=== PATIENT | male | born 1990 ===

== ENCOUNTER 2021-05-30 12:13 | Emergency (ER) | payer SELFPAY ==
[2021-05-30 12:46] VITALS: BP 106/57
--- NOTE | 2021-05-30 14:22 | Emergency Department Report ---
Chief Complaint: Urogenital-Male Stated Complaint: STD CK Time Seen by Provider: 05/30/21 14:20 - HPI History of Present Illness: Patient is a 30-year-old male presents emergency room complaints of yellow penile discharge that occurred this morning. He states he was sexually active. He denies any dysuria, nausea, vomiting, diarrhea, pain or swelling the testicles, abdominal pain, back pain, hematuria, urinary retention. No past medical history. No allergies to medications. Initial vitals entered incorrectly, patient's vitals are normal On exam: Non toxic appearing, no acute distress atraumatic, normocephalic normal appearance of the eyes, EOMI, no periorbital edema or ecchymosis moist mucus membranes No respiratory distress, no accessory muscle use A&O x4, normal gait Patient is presenting for concerns of STD He denies any dysuria, nausea, vomiting, diarrhea, pain or swelling the testicles, abdominal pain, back pain, hematuria, urinary retention This hospital facility does not test or treat for uncomplicated male STDs Patient given the appropriate resources Discussed return precautions Stressed the importance of outpatient follow-up Medical screen examination performed and there is no threat to life or limb at this time - Exam Vital Signs: Vital Signs 05/30/21 12:45 Temperature 98.1 F Pulse Rate 20 L Respiratory 20 Rate Blood Pressure 106/57 [Right] O2 Sat by Pulse 99 Oximetry MSE screening note: Focused history and physical exam performed. Due to findings the following was ordered: ED Disposition for MSE Clinical Impression: Concern about STD in male without diagnosis Disposition: 01 HOME / SELF CARE / HOMELESS Is pt being admited?: No Does the pt Need Aspirin: No Condition: Stable Instructions: Safe Sex Additional Instructions: please follow up with clinic or health department for full STD panel. have any partner tested and treated as well. avoid sexual intercourse. return to the emergency room for any new or worsening symptoms. [facility] in [place], [place] Address: [address] [place] [address], [place] [address] Referrals: [facility] Depart [Outside] - 2-3 Days Time of Disposition: 14:21 Print Language: TAIWANESE
== END 2021-05-30 14:23 | disposition home or self-care (01) ==
LOC: ED 12:13
DX: Z20.2 Contact with and (suspected) exposure to infections with a predominantly sexual mode of transmission (principal)
CPT/HCPCS: 99281